=== PATIENT | female | born 1965 | race Caucasian/White ===

== ENCOUNTER → 2017-04-14 | Outpatient (CLI) | payer BC ==
[~2017-04-14] VITALS: Ht 156.2 cm; Wt 145.0 kg
[~2017-04-14] MED LIST: ADVIL200 MG PO; FISH OIL 1,2001 EAC3 PO; FOLGARD1 TABLET PO; MELATIN3 MG PO; VITAMIN A DAY1 EACH PO
== END | disposition home or self-care (01) ==
LOC: AMB 10:18
PROC: 0DBK8ZX Excision of Ascending Colon, Via Natural or Artificial Opening Endoscopic, Diagnostic (ICD-10-PCS; principal; 2017-04-14)
DX: Z12.11 Encounter for screening for malignant neoplasm of colon (principal); D12.2 Benign neoplasm of ascending colon; K57.30 Diverticulosis of large intestine without perforation or abscess without bleeding; D64.9 Anemia, unspecified; R01.1 Cardiac murmur, unspecified; E55.9 Vitamin D deficiency, unspecified; Z83.3 Family history of diabetes mellitus; Z82.0 Family history of epilepsy and other diseases of the nervous system; Z82.3 Family history of stroke
CPT/HCPCS: 88305

== ENCOUNTER → 2017-07-14 | Outpatient (CLI) | payer BC ==
[~2017-07-14] MED LIST changes: +CYANOCOBALAM1000 MCG PO; +MUCINEX600 MG PO; +VITAMIN D2000 UNIT PO
== END | disposition home or self-care (01) ==
LOC: CDC 14:46
DX: Z01.810 Encounter for preprocedural cardiovascular examination (principal); K64.8 Other hemorrhoids
CPT/HCPCS: 93000